=== PATIENT | male | born 1975 | race Caucasian/White ===

== ENCOUNTER 2018-10-18 10:11 | Day surgery (SDC) | payer BC ==
--- NOTE | 2018-10-18 11:30 | PCM.PREANE ---
Preanesthetic Assessment - Anesthesia/Transfusion/Family Hx Anesthesia History: Prior Anesthesia Without Reaction Family History of Anesthesia Reaction: No Transfusion History: No Prior Transfusion(s) - Review of Systems General: No Symptoms Pulmonary: No Symptoms Cardiovascular: No Symptoms Gastrointestinal: No Symptoms Neurological: No Symptoms Other: Reports: None - Physical Assessment NPO Status Date: 10/17/18 Height: 5 ft 10 in Weight: 124.738 kg ASA Class: 3 Mental Status: Alert & Oriented x3 Airway Class: Mallampati = 2 Dentition: Reports: Normal Dentition ROM/Head Extension: Full Lungs: Clear to Auscultation, Normal Respiratory Effort Cardiovascular: Regular Rate, Regular Rhythm - Allergies Allergies/Adverse Reactions: Allergies Allergy/AdvReac Type Severity Reaction Status Date / Time No Known Allergies Allergy Verified 10/12/18 09:15 - Blood Blood Available: No - Anesthesia Plan Pre-Op Medication Ordered: None - Acknowledgements Anesthesia Type Planned: General Anesthesia Pt an Appropriate Candidate for the Planned Anesthesia: Yes Alternatives and Risks of Anesthesia Discussed w Pt/Guardian: Yes Pt/Guardian Understands and Agrees with Anesthesia Plan: Yes Additional Comments: PMH: smoker, htn, asthma, (denies valium use), MO, prob EMANI PLAN: GA-LMA, emani instructions discussed and given. PreAnesthesia Questionnaire HEENT History: Reports: Other (See Below) Other HEENT History: nasal polyps Cardiovascular History: Reports: Hypertension Respiratory History: Reports: Asthma Gastrointestinal History: Reports: None Genitourinary History: Reports: None Musculoskeletal History: Reports: Fracture Other Musculoskeletal History: roc ankle fx Neurological History: Reports: None Psychiatric History: Reports: None Endocrine/Metabolic History: Reports: Obesity/BMI 30+ Hematologic History: Reports: None Immunologic History: Reports: None Oncologic (Cancer) History: Reports: None Dermatologic History: Reports: None - Past Surgical History Head Surgeries/Procedures: Reports: None HEENT Surgical History: Reports: Naso-Sinus Surgery GI Surgical History: Reports: None Male Surgical History: Reports: None Neurological Surgical History: Reports: None Musculoskeletal Surgical History: Reports: Arthroscopic Knee, Other (See Below) Other Musculoskeletal Surgeries/Procedures:: surgical repair of left ankle fx and later had hardware removal, roc knee arthroscopies Dermatological Surgical History: Reports: None - SUBSTANCE USE Smoking Status *Q: Current Every Day Smoker Tobacco Use Within Last Twelve Months: Cigarettes, Other (See Below) Recreational Drug Use History: No - HOME MEDS Home Medications: Home Meds Albuterol Sulfate [Albuterol Sulfate HFA] 2 puff INH Q4H PRN 10/18/14 [History] Budesonide/Formoterol [Symbicort 160-4.5 Mcg Inhaler] 1 puff INH DAILY 10/18/14 [History] Fluticasone Propionate [Flonase Allergy Relief] 1 spray NASBOTH DAILY 10/12/18 [ History] Losartan/Hydrochlorothiazide [Losartan-HCTZ 100-12.5 MG] 1 tab PO DAILY [History] - CURRENT (IN HOUSE) MEDS Current Meds: Current Medications Discontinued Medications Acetaminophen (Ofirmev) Confirm Administered Dose 100 mls @ as directed IV .STK- MED ONE Stop: 10/18/18 07:51
[2018-10-18] MEDS ORDERED: Sodium Chloride 0.9% 10 ML Syringe FLUSH PRN (11:40)
[2018-10-18] MEDS ORDERED: Sodium Chloride 0.9% 10 ML SDV IV PRN (11:40)
[2018-10-18] MEDS ORDERED: Sodium Chloride 0.9% 2.5 ML Syringe FLUSH PRN (11:40)
[2018-10-18] MEDS ORDERED: ceFAZolin 2 GM in Premix Bag 1 BAG IV ONE (11:40)
[2018-10-18] MEDS ORDERED: Acetaminophen/HYDROcodone 325-5 MG Tab PO PRN (11:40)
[2018-10-18] MEDS ORDERED: Lactated Ringers 1,000 ML IV SCH ×2 (11:45)
[2018-10-18] MEDS ORDERED: fentaNYL 100 MCG/2 ML SDV ONE (11:50)
[2018-10-18] MEDS ORDERED: Midazolam 1 MG/ML 2 ML SDV ONE (11:50)
[2018-10-18] MEDS ORDERED: Propofol 200 MG/20 ML SDV ONE (11:51)
[2018-10-18] MEDS ORDERED: Lidocaine 1% 20 ML MDV ONE (12:22)
[2018-10-18] MEDS ORDERED: HYDROmorphone 2 MG/ML SDV IVPUSH PRN (12:28)
[2018-10-18] MEDS ORDERED: Ondansetron 4 MG/2 ML SDV IVPUSH PRN (12:28)
[2018-10-18] MEDS ORDERED: ceFAZolin 1 GM Vial ONE (12:59)
[2018-10-18] MEDS ORDERED: Ondansetron 4 MG/2 ML SDV ONE (13:13)
--- NOTE | 2018-10-18 13:38 | PCM.OPNOTE ---
- General Post-Op/Procedure Note Date of Surgery/Procedure: 10/18/18 Operative Procedure(s): R knee arthroscopy with limited synovectomy Post-Op Diagnosis: R knee synovitis, crystalline deposition disease Anesthesia Technique: General LMA Primary Surgeon: Roro Platt Regulatory Affairs Portfolio Leader: Shanita Escobedo in mLs: 4 Condition: Good Free Text/Narrative:: tt= see nursing record #[id number]
--- NOTE | 2018-10-18 13:55 | PCM.POSTAN ---
POST ANESTHESIA ASSESSMENT - MENTAL STATUS Mental Status: Alert, Oriented - RESPIRATORY Respiratory Status: Respiratory Rate WNL, Airway Patent, O2 Saturation Stable - CARDIOVASCULAR CV Status: Pulse Rate WNL, Blood Pressure Stable - GASTROINTESTINAL GI Status: No Symptoms - PAIN Pain Score: 0 - POST OP HYDRATION Hydration Status: Adequate & Stable - OBSERVATIONS Free Text/Narrative:: The patient tolerated the procedure well. there were no apparent anesthetic complications at this time. Discharge home per criteria.
[2018-10-18] MEDS ORDERED: oxyCODONE 5 MG Tab PO ONE (14:09)
--- NOTE | 2018-10-18 14:32 | PCM48HPAN ---
Post Anesthesia Note - EVALUATION WITHIN 48HRS OF ANESTHETIC Vital Signs in Normal Range: Yes Patient Participated in Evaluation: Yes Respiratory Function Stable: Yes Airway Patent: Yes Cardiovascular Function Stable: Yes Hydration Status Stable: Yes Pain Control Satisfactory: Yes Nausea and Vomiting Control Satisfactory: Yes Mental Status Recovered: Yes Resp Rate: 9
--- NOTE | 2018-10-18 15:07 | OR ---
SURGEON: Roro Platt MD DATE OF PROCEDURE: 10/18/2018 PREOPERATIVE DIAGNOSIS: Right knee pain. POSTOPERATIVE DIAGNOSES: 1. Right knee synovitis. 2. Right knee crystalline deposition disease. PROCEDURES: Right knee arthroscopy with limited synovectomy. EVALUATION ANALYST: Shanita Escobedo PA-C ANESTHESIA: General. ESTIMATED BLOOD LOSS: 5 mL. TOURNIQUET TIME: See nursing record. COMPLICATIONS: None. DVT PROPHYLAXIS: Not indicated. IMPLANTS USED: None. BRIEF HISTORY: Dave is a 43-year-old male who has had complaint of progressive right knee pain. He cannot recall a specific injury. He did have a brief response to the cortisone injection; however, his pain has since recurred. Due to his lack of response to conservative treatment, I did recommend surgical intervention. The risks and goals of procedure were discussed with the patient and were documented preoperatively. He agreed to proceed. DESCRIPTION OF PROCEDURE: The patient was properly identified and brought to the operating room. He was transferred from the OR cart and placed on the operating table in supine position. General anesthesia was administered. After adequate anesthesia was obtained, a well-padded tourniquet was applied to the right lower extremity. The right lower extremity was then prepped in standard fashion using ChloraPrep solution. It was then sterilely draped. A time-out was performed to ensure correct site and procedure. Preoperative antibiotics were given. The surgical site had been marked preoperatively. An Esmarch was used to exsanguinate the right lower extremity and the tourniquet was inflated to 250 mmHg. A lateral portal arthrotomy was established. Blunt trocar and cannula were introduced into the suprapatellar pouch. Camera, inflow, and outflow were assembled. No significant synovitis was noted within the suprapatellar pouch. The patellofemoral joint was visualized. Minor degenerative changes consistent with grade 2 chondromalacia were noted. The patella appeared to track centrally. There was some impingement of the fat pad along the patellofemoral joint. I then extended down the lateral and medial gutters. No loose bodies were identified. I then entered the medial compartment. A medial portal arthrotomy was established. A blunt probe was inserted. The meniscus was extensively probed. No instability or tearing was noted. Crystals were noted to be deposited within the meniscus as well as the articular cartilage. Diffuse grade 2 chondromalacia was noted. I then entered the notch. Both the ACL and PCL were visualized and probed and found to be intact. He did have some hemorrhagic synovitis present along the superior aspect of the notch as well as anteriorly. This was resected with a shaver. I then entered the lateral compartment. Again, noted was the crystalline deposition disease. The meniscus was extensively probed and found to be stable. No significant degenerative changes were noted. I returned to the patellofemoral joint. A portion of the fat pad was resected and no further impingement was noted. No loose cartilage flaps were noted within the patellofemoral joint. Instruments were then removed from the knee. The portal sites were closed with 3-0 nylon. 1% Lidocaine was injected along the portal tracts. Xeroform gauze was placed over the wound and a bulky dressing was applied. The tourniquet was then deflated. He was awakened from his anesthetic and transferred back to the operating room cart. He was brought to recovery room in stable condition. All needle and sponge counts were correct. SHANTA / BRONSON /[id number]
[2018-10-18 16:01] VITALS: BP 115/79
== END 2018-10-18 15:00 | disposition home or self-care (01) ==
LOC: MW.SDS 10:11
PROVIDERS: ATTEND Orthopaedic Surgery
DX: M65.861 Other synovitis and tenosynovitis, right lower leg (principal); I10 Essential (primary) hypertension; J45.909 Unspecified asthma, uncomplicated; F17.210 Nicotine dependence, cigarettes, uncomplicated; Z79.51 Long term (current) use of inhaled steroids; Z79.899 Other long term (current) drug therapy
CPT/HCPCS: 29875; A9270; J0131; J0690; J2001; J2250; J2405; J2704; J3010; J7120

== ENCOUNTER 2019-08-11 23:10 | Emergency (ER) | payer BC ==
[2019-08-11] MEDS ORDERED: Albuterol/Ipratropium 3.0-0.5 MG/3 ML Neb Soln NEB ONE (23:18)
[2019-08-11] MEDS ORDERED: Albuterol/Ipratropium 3.0-0.5 MG/3 ML Neb Soln ONE (23:20)
[2019-08-12] MEDS ORDERED: Dexamethasone 4 MG Tab PO ONE (00:20)
[2019-08-12 01:21] LABS: BLOOD UREA NITROGEN,BUN 13 mg/dL (7.0-18.0); CARBON DIOXIDE,CO2 26.7 mmol/L (21.0-32.0); CHLORIDE,CL 101 mmol/L (98-107); GLUCOSE RANDOM 119 mg/dL (74-106); POTASSIUM,K 3.9 mmol/L (3.5-5.1); SODIUM,NA 137 mmol/L (136-148)
[2019-08-12] MEDS ORDERED: Iopamidol 755 Mg/ML 100 ML Bottle IVPUSH STA (01:46)
--- NOTE | 2019-08-12 02:21 | CT ---
Indication: Speech and swallowing difficulty, pain Technique: Contrast enhanced axial CT imaging through the neck. 100 mL Isovue 370 contrast agent was administered intravenously. Sagittal and coronal reconstructions are provided. Comparison: None Findings: There is scattered paranasal sinus mucosal thickening, most pronounced in the left maxillary sinus which is near completely opacified. There is widening of the maxillary ostia bilaterally, suggesting prior bilateral osteotomies. There is an air-fluid level in the right sphenoid sinus. There is no osseous erosion. The orbital contents are normal. The mastoid air cells are aerated There is no suspicious neck mass or lymphadenopathy. The parotid and submandibular glands are unremarkable. The pharynx demonstrates normal contour. The parapharyngeal fat is preserved. The oral cavity, tongue, and floor of mouth are unremarkable. No abnormality seen with the supervisor photoengraving spaces. The thyroid gland enhances homogeneously. No significant abnormality is demonstrated within the visualized intracranial compartment. The visualized aortic arch and neck vessels are unremarkable. Impression: 1. No significant abnormality of the visualized aerodigestive tract. No suspicious neck mass or lymphadenopathy. 2. Maxillary sinus mucosal disease, worst in the left maxillary sinus with air-fluid level in the right sphenoid sinus. Correlate for acute sinusitis. 3. Suggestion of prior bilateral maxillary osteotomies. Correlate with surgical history. Please note that all CT scans at this facility use dose modulation, iterative reconstruction, and/or weight-based dosing when appropriate to reduce radiation dose to as low as reasonably achievable. Dictated by Stephen Roberts MD @ Aug 12 2019 2:02AM Signed by Dr. Stephen Roberts @ Aug 12 2019 2:20AM
[2019-08-12] MEDS ORDERED: Ampicillin/Sulbactam Na 3 GM in Sodium Chloride 0.9% 100 ML IV ONE ×2 (02:29→03:30)
--- NOTE | 2019-08-12 02:49 | CR ---
INDICATION: Shortness of breath COMPARISON: None TECHNIQUE: Frontal and lateral views of the chest FINDINGS: The lungs are clear. There is no pleural effusion or pneumothorax. The cardiomediastinal silhouette is normal. The osseous structures are unremarkable. IMPRESSION: No acute intrathoracic process. Dictated by Stephen Roberts MD @ Aug 12 2019 2:47AM Signed by Dr. Stephen Roberts @ Aug 12 2019 2:49AM
[2019-08-12] MEDS ORDERED: Sodium Chloride 0.9% 1,000 ML IV ONE (02:57)
--- NOTE | 2019-08-12 04:04 | EDM.PDOC ---
[facility] GENERAL MEDICAL PROBLEM - General Chief Complaint: Allergic Reaction Stated Complaint: ALLERGIC REACTION,ASTHMA Time Seen by Provider: 08/11/19 23:41 - History of Present Illness INITIAL COMMENTS - FREE TEXT/NARRATIVE: HPI 44 y/o male presents with sensation of facial cutaneous swelling, sinus pressure , hoarse voice and a concern for swelling in his neck. No fevers or chills. Notes recent rash, diphenhydramine responsive, this occurred approximately one week ago. Unclear what triggered his rash. M/S/F/SocHx notable for: asthma; remainder reviewed with patient and in chart. ROS: Negative constitutional, eye, cardiovascular, pulmonary, GI, , MSK, skin , neurologic, psychiatric, endocrine unless noted in the HPI. Exam HR 123, RR 20, BP 150/93, T 36.7C, SaO2 91% on room air. Gen: Pleasant, non-toxic appearing, resting comfortably. HEENT: NC, AT, PEERL, EOMI. Voice hoarse. Oropharynx visually normal, left maxillary sinus tenderness to palpation. Neck supple, full JUAN MANUEL him, no lymphadenopathy. Resp: diffuse fine extra wheezing throughout all lung truong, otherwise clear to auscultation bilaterally. Card: Regular rate and rhythm with no murmurs, rubs, or gallops, extremities warm and well perfused. GI: Non-tender to palpation throughout all quadrants, no focal tenderness at McBurney's point, negative Gilliam's sign, non-distended, no rebound or guarding. : No suprapubic tenderness to palpation. MSK: No visible deformities, strength and tone without visually appreciable deficit. Skin: Normal color with no visible lesions. Neuro: alert and oriented 3, no facial asymmetry, vision and hearing WNL. Psych: Mood and affect appropriate. Labs / Imaging: WBC 19.05, HB 14.8, sodium 137, potassium 3.9 CT neck: no significant abnormality of the visualized aerodigestive tract. No suspicious neck mass or lymphadenopathy. Maxillary sinus mucosal disease, worsening left maxillary sinus with air-fluid level of the right sphenoid sinus. Correlate for acute sinusitis. Suggestion of prior bilateral maxillary osteotomies. CXR: no acute intrathoracic process. MDM Previous chart, nursing note, labs, imaging, and vitals reviewed. A: 44 y/o male presents with sensation of facial cutaneous swelling, sinus pressure, hoarse voice and a concern for swelling in his neck. Evaluation: patient with significant sinus disease, no evidence of epiglottitis , RPA, ASSET PROTECTION SPECIALIST, or further abnormalities on imaging or exam. No clinical features consistent with meningitis. Chest x-ray obtained due to the wheezing and cough, this is without evidence of acute intrabdominal processes. Patient had swelling of the upper lip while in the emergency department that visually appears to be consistent with angioedema, low suspicion for allergic reaction. While the patients medication history lists losartan, the patient has not taken this for at least a year. Patient denies recent NSAID use, trauma, or other identifiable changes in his daily routine. Extensive discussion was had with the patient with the recommendation for admission for monitoring of his swelling, tachycardia, leukocytosis, and concern for sepsis pathophysiology as well as facial swelling of unclear etiology. The patient declined admission on multiple opportunities, the patient had explained to him the risks and benefits including the possibility of worsening disease and . The patient made an informed decision and was discharged home on antibiotics. Prior to discharge the patient was given 1 L NS in addition to a first dose of antibiotics (Unasyn) . Patient was discharged AMA with the prescription for Augmentin and instructed to follow-up with his PCP tomorrow. Impression: facial swelling, sinusitis. throat Pain Score (Numeric/FACES): 6 - Related Data Allergies Allergy/AdvReac Type Severity Reaction Status Date / Time No Known Allergies Allergy Verified 10/12/18 09:15 Home Meds: Home Meds Albuterol Sulfate [Albuterol Sulfate HFA] 2 puff INH Q4H PRN 10/18/14 [History] Budesonide/Formoterol [Symbicort 160-4.5 MCG] 1 puff INH DAILY 10/18/14 [History ] Fluticasone Propionate [Flonase Allergy Relief] 1 spray NASBOTH DAILY 10/12/18 [ History] Losartan/Hydrochlorothiazide [Losartan-HCTZ 100-12.5 MG] 1 tab PO DAILY [History] Acetaminophen/HYDROcodone [Whitman 325-5 MG] 1 - 2 tab PO Q4H PRN #20 tablet 10/18 [Rx] Amoxicillin/Clavulanate K [Augmentin 875-125 MG] 1 tab PO BID #20 tablet [Rx] Past Medical History HEENT History: Reports: Other (See Below) Other HEENT History: nasal polyps Cardiovascular History: Reports: Hypertension Respiratory History: Reports: Asthma Gastrointestinal History: Reports: None Genitourinary History: Reports: None Musculoskeletal History: Reports: Fracture Other Musculoskeletal History: roc ankle fx Neurological History: Reports: None Psychiatric History: Reports: None Endocrine/Metabolic History: Reports: Obesity/BMI 30+ Hematologic History: Reports: None Immunologic History: Reports: None Oncologic (Cancer) History: Reports: None Dermatologic History: Reports: None - Past Surgical History Head Surgeries/Procedures: Reports: None HEENT Surgical History: Reports: Naso-Sinus Surgery GI Surgical History: Reports: None Male Surgical History: Reports: None Neurological Surgical History: Reports: None Musculoskeletal Surgical History: Reports: Arthroscopic Knee, Other (See Below) Other Musculoskeletal Surgeries/Procedures:: surgical repair of left ankle fx and later had hardware removal, roc knee arthroscopies Dermatological Surgical History: Reports: None Social & Family History - Family History Family Medical History: Noncontributory - Tobacco Use Smoking Status *Q: Light Tobacco Smoker Years of Tobacco use: 15 Packs/Tins Daily: 0.1 - Recreational Drug Use Recreational Drug Use: No ED ROS ALLERGIC REACTION - Review of Systems Review Of Systems: See Below ED EXAM GENERAL NO PERIP PULSE - Physical Exam Exam: See Below Course - Vital Signs Last Recorded V/S: Last Vital Signs Temp 36.7 C 08/11/19 23:22 Pulse 123 H 08/11/19 23:22 Resp 20 08/11/19 23:22 BP 150/93 H 08/11/19 23:22 Pulse Ox 91 L 08/11/19 23:22 - Orders/Labs/Meds Orders: Active Orders 24 hr Category Date Time Status RT Aerosol Therapy [RC] ASDIRECTED Care 08/11/19 23:18 Active Labs: Laboratory Tests 08/12/19 08/12/19 08/12/19 Range/Units 01:05 01:05 01:05 WBC 19.05 H (4.0-11.0) K/uL RBC 5.09 (4.50-5.90) M/uL Hgb 14.8 (13.0-17.0) g/dL Hct 42.7 (38.0-50.0) % MCV 83.9 (80.0-98.0) fL MCH 29.1 (27.0-32.0) pg MCHC 34.7 (31.0-37.0) g/dL RDW Std Deviation 41.9 (28.0-62.0) fl RDW Coeff of Diana 14 (11.0-15.0) % Plt Count 320 (150-400) K/uL MPV 10.70 (7.40-12.00) fL Add Manual Diff YES Neutrophils % (Manual) 75 (48.0-80.0) % Band Neutrophils % 2 % Lymphocytes % (Manual) 17 (16.0-40.0) % Monocytes % (Manual) 6 (0.0-15.0) % Absolute Seg Neuts 14.3 H (1.4-5.7) Band Neutrophils # 0.4 Lymphocytes # (Manual) 3.2 H (0.6-2.4) Monocytes # (Manual) 1.1 H (0.0-0.8) Lactate 0.9 (0.20-2.00) mmol/L Sodium 137 (136-148) mmol/L Potassium 3.9 (3.5-5.1) mmol/L Chloride 101 (98-107) mmol/L Carbon Dioxide 26.7 (21.0-32.0) mmol/L BUN 13 (7.0-18.0) mg/dL Creatinine 0.9 (0.8-1.3) mg/dL Est Cr Clr Drug Dosing 108.15 mL/min Estimated GFR (MDRD) > 60.0 ml/min Glucose 119 H (74-106) mg/dL Calcium 8.9 (8.5-10.1) mg/dL Meds: Medications Discontinued Medications Generic Name Dose Route Start Last Admin Trade Name Ana PRN Reason Stop Dose Admin Albuterol/Ipratropium 3 ml 08/11/19 23:18 08/11/19 23:24 Duoneb 3.0-0.5 Mg/3 Ml NEB 08/11/19 23:19 3 ml ONETIME ONE Administration Albuterol/Ipratropium Confirm 08/11/19 23:20 08/12/19 00:52 Duoneb 3.0-0.5 Mg/3 Ml Administered 08/11/19 23:21 Not Given Dose 3 ml .ROUTE .STK-MED ONE Dexamethasone 12 mg 08/12/19 00:20 08/12/19 00:54 Dexamethasone PO 08/12/19 00:21 12 mg ONETIME ONE Administration Ampicillin Sodium/Sulbactam 100 mls @ 200 mls/hr 08/12/19 02:29 08/12/19 03: 26 Sodium 3 gm/ Sodium Chloride IV 08/12/19 02:58 200 mls/hr ONETIME ONE Administration Sodium Chloride 1,000 mls @ 1,000 mls/hr 08/12/19 02:57 08/12/19 03:24 Normal Saline IV 08/12/19 03:56 1,000 mls/hr .Bolus ONE Administration Ampicillin Sodium/Sulbactam 100 mls @ 200 mls/hr 08/12/19 03:30 08/12/19 03: 55 Sodium 3 gm/ Sodium Chloride IV 08/12/19 03:59 Not Given ONETIME ONE Iopamidol 100 ml 08/12/19 01:46 08/12/19 01:55 Isovue-370 (76%) IVPUSH 08/12/19 01:47 100 ml ONETIME STA Administration Departure - Departure Time of Disposition: 04:03 Disposition: Home, Self-Care 01 Clinical Impression: Facial swelling, Sinusitis - Discharge Information Prescriptions: Amoxicillin/Clavulanate K [Augmentin 875-125 MG] 1 tab PO BID #20 tablet Referrals: PCP,Not In Area [Primary Care Provider] - Additional Instructions: You were in seen in the [facility] for evaluation of facial swelling of sinus pain. At the time of your evaluation because your facial swelling is unclear. You were also believed to have a sinus infection and have been prescribed Augmentin. Admission to the hospital strongly recommended. You are being discharged against medical advice as there is a concern that your swelling could worsen leading to blockage of her airway with or permanent injury resulting. Additionally, your infection appears to be serious enough to warrant inpatient care. Treatment on an outpatient basis is considered unnecessarily risky, this infection may progress and cause serious injury, permanent injury, or . Please read and follow all of the instructions below. You are being discharged against medical advice. You are welcome to return to this or any other emergency department at any time for further care. Prior to being discharged, you expressed an understanding that you are risking permanent disability or from an undiagnosed or untreated emergency medical condition. You also expressed a willingness to accept this risk and assume responsibility for the results of this choice. To reduce your risk, please do the following: Return immediately for any worsening of condition or any other new concerns. Read all the instructions we provided today. Continue all your medications as prescribed. Follow up with your primary care physician immediately. You are being discharged against medical advice. You are welcome to return to this or any other emergency department at any time for further care. Please follow up with your primary care physician as needed. When calling for follow-up care, please make the office aware that this follow-up is from your recent emergency room visit. If for any reason you are refused follow-up, please contact the [facility] at and asked to speak to the emergency department charge nurse. Amoxicillin/Clavulanic Acid (Brand Name: Augmentin) Please take this medication as prescribed. Please take the medication for the full duration of the precription. If you feel you are experiencing a side effect, please call your physician or the emergency department. This is a penicillin type medicine used to treat a wide variety of bacterial infections. Amoxicillin/Clavulanic Acid Side Effects: Diarrhea, nausea, or vomiting may occur. If any of these effects persist or worsen, tell the doctor or pharmacist promptly. Taking this medication with food will help to reduce stomach upset. Tell the doctor right away if any of these rare but serious side effects occur: dark urine, persistent nausea/vomiting, severe stomach/abdominal pain, yellowing eyes/skin, easy bruising/bleeding, new signs of infection (such as fever, persistent sore throat), unusual tiredness. This medication may rarely cause a severe intestinal condition (Clostridium difficile-associated diarrhea) due to a type of resistant bacteria. This condition may occur during treatment or weeks to months after treatment has stopped. Do not use anti-diarrhea products or narcotic pain medications if you have any of the following symptoms because these products may make them worse. Tell the doctor right away if you develop: persistent diarrhea, abdominal or stomach pain/cramping, blood/mucus in your stool. Use of this medication for prolonged or repeated periods may result in oral thrush or a new yeast infection. Contact the doctor if you notice white patches in your mouth, a change in vaginal discharge or other new symptoms. A very serious allergic reaction to this drug is rare. However, get medical help right away if you notice any symptoms of a serious allergic reaction, including: rash, itching/swelling (especially of the face/tongue/throat), severe dizziness, trouble breathing. Amoxicillin can commonly cause a mild rash that is usually not serious. However, you may not be able to tell it apart from a rare rash that could be a sign of a severe allergic reaction. Therefore, get medical help right away if you develop any rash. Amoxicillin/Clavulanic Acid Precautions: Before taking this product, tell your doctor or pharmacist if you are allergic to amoxicillin or clavulanic acid; or to penicillin or cephalosporin antibiotics; or if you have any other allergies. This product may contain inactive ingredients, which can cause allergic reactions or other problems. Talk to your pharmacist for more details. Before using this medication, tell the doctor or pharmacist your medical history, especially of: liver disease (including liver problems caused by previous use of amoxicillin/clavulanic acid), kidney disease, a certain type of viral infection (infectious mononucleosis). This medication may contain aspartame. If you have phenylketonuria (PKU) or any other condition that requires you to limit/avoid aspartame (or phenylalanine ) in your diet, ask your doctor or pharmacist about using this medication safely. Before having surgery, tell your doctor or dentist about all the products you use (including prescription drugs, nonprescription drugs, and herbal products). This product may cause live bacterial vaccines (such as typhoid vaccine) not to work as well. Therefore, do not have any immunizations/vaccinations while using this medication without the consent of your doctor. During , this medication should be used only when clearly needed. Discuss the risks and benefits with your doctor. This medication passes into breast milk. Consult your doctor before breast- feeding. Amoxicillin/Clavulanic Acid Drug Interactions: Drug interactions may change how your medications work or increase your risk for serious side effects. This document does not contain all possible drug interactions. Keep a list of all the products you use (including prescription/ nonprescription drugs and herbal products) and share it with your doctor and pharmacist. Do not start, stop, or change the dosage of any medicines without your doctor's approval. Products that may interact with this drug include: methotrexate. Although most antibiotics are unlikely to affect hormonal control such as pills, patch, or ring, a few antibiotics (such as rifampin, rifabutin) can decrease their effectiveness. This could result in . If you use hormonal control, ask your doctor or pharmacist for more details. This medication may interfere with certain laboratory tests (including certain urine glucose tests), possibly causing false test results. Make sure laboratory personnel and all your doctors know you use this drug. Your care today was limited to identifying and treating emergent medical problems only. Many people have subtle differences in their test results that require follow up with their outpatient physician(s) to correctly determine if this represents a normal variation or concerning abnormality with respect to your specific health. The care given to you today was limited to identifying and treating emergent medical problems - you need to request a copy of all of your medical records from today's visit and follow up with your outpatient physician(s) to review both today's visit and your overall health. If you have any new symptoms or if you are at all concerned about your health please return immediately to the emergency department. Prescriptions: If you are uninsured or have financial difficulties with filling your prescription(s), you may consider using a free pharmacy discount service such as [employer] ([employer]) or Wink ([employer]). These services allow you to search for a medication on your phone (or computer) and obtain a coupon that usually has a significant discount from the list hilton at a pharmacy. Your physician as well as [facility] does not have a financial relationship with either of these services. You may also wish to speak with your physician to determine if lower cost prescriptions are possible. Obtaining primary care: 1. provides pediatrics (children), family medicine (children, adults, and some obstetrical care), and internal medicine (adults). Further specialty care is also available. Same day appointments are available. They may be contacted at [phone] and are open Tuesday through Tuesday 8 AM to 5 PM. The [facility] are located at [facility], [address] [place] [address]. 2. [facility] offers family medicine, internal medicine, womens health, and further specialty care. [facility] may be contacted at [phone]. [facility] is located at [address] [place], [address]. 3. If you have health insurance, please also contact your insurer for a list of accepting providers under your policy, you may contact these providers for further health care. Occupational health: Work related injuries may consider following up with [facility], . Occupational health services are located at [address] [place] [address] and are open Tuesday through Tuesday from 7: 30 am to 5:00 pm. Obstetrical and Gynecological Care: [facility], , Tuesday through Tuesday 8 AM to 5 PM. [address] [place] [address]. Eyecare: If you have an eye injury you should follow up with your calculus professor or with [facility], at [phone] or [phone] , they are located at [address] [place] [address]. Dental Care Vince Lin DDS. [address] [place], [place]. Ph. [phone] DDS [place]. [address] [facility] [address], [place], [place]. Ph. Devonte Morgan DDS. [address] [place] [address]. Ph. [phone] Je Purvis DDS. [address] [facility] [address] [place], [place]. Ph. [phone] Jaret Ferris DDS PC. [address] [facility] [address] [place], [place]. Ph. [phone] Saida Jordan DDS. [address] [facility]. Ph. [phone] [facility]. [address] [place], [place]. Ph. [phone] [facility]. [address] [place] [address], [place], [place]. Ph. [phone] [facility] [address] [place] [phone]. Ph. [facility]. [address] [place] [address] [address] HOANG Rincon. Ph. [facility]. [address], HOANG Rincon. Ph. Sepsis Event Note - Evaluation Sepsis Screening Result: No Definite Risk - Focused Exam Vital Signs: Vital Signs Temp Pulse Resp BP Pulse Ox 08/11/19 23:22 36.7 C 123 H 20 150/93 H 91 L Date Exam was Performed: 08/12/19 Time Exam was Performed: 04:03 - My Orders Last 24 Hours: My Active Orders 08/11/19 23:18 RT Aerosol Therapy [RC] ASDIRECTED - Assessment/Plan Last 24 Hours: My Active Orders 08/11/19 23:18 RT Aerosol Therapy [RC] ASDIRECTED
[2019-08-12 04:25] VITALS: BP 137/73; PULSE 102
== END 2019-08-12 04:15 | disposition home or self-care (01) ==
LOC: MW.ED 23:10
DX: J32.9 Chronic sinusitis, unspecified (principal); I10 Essential (primary) hypertension; J45.909 Unspecified asthma, uncomplicated; E66.9 Obesity, unspecified; F17.210 Nicotine dependence, cigarettes, uncomplicated
CPT/HCPCS: 36415; 70491; 71046; 80048; 83605; 85025; 96365; 99284; J0295; J7030; J7050; J8540; Q9967; J7620-GY

== ENCOUNTER 2019-10-28 10:03 | Observation (INO) | payer BC, OTHER ==
[2019-10-28] MEDS ORDERED: Acetaminophen 500 MG Tab PO ONE (10:51)
[2019-10-28] MEDS ORDERED: predniSONE 20 MG Tab PO ONE (10:51)
[2019-10-28] MEDS ORDERED: Sodium Chloride 0.9% 1,000 ML IV ONE (10:52)
[2019-10-28] MEDS ORDERED: Albuterol 8 GM Inhaler INH ONE (10:53)
--- NOTE | 2019-10-28 11:44 | CR ---
Clinical INDICATION: Possible COVID. FINDINGS: Are the cardiomediastinal silhouette, lung parenchyma, pulmonary pressure pleural surfaces are all normal appearance. The bony thorax appears intact. IMPRESSION: Negative study. Dictated by Pravin Wang MD @ Oct 28 2019 11:41AM Signed by Dr. Pravin Wang @ Oct 28 2019 11:42AM
[2019-10-28] MEDS ORDERED: cefTRIAXone 1 GM in Premix Bag 1 BAG IV ONE (11:45)
[2019-10-28 11:51] LABS: BLOOD UREA NITROGEN,BUN 17 mg/dL (7.0-18.0); CHLORIDE,CL 102 mmol/L (98-107); GLUCOSE RANDOM 112 mg/dL (74-106); SODIUM,NA 137 mmol/L (136-148)
[2019-10-28] MEDS ORDERED: diphenhydrAMINE 50 MG Cap PO ONE (11:53)
--- NOTE | 2019-10-28 12:10 | EDM.PDOC ---
ED HPI GENERAL MEDICAL PROBLEM - General Chief Complaint: Fever Stated Complaint: FEVER/COUGH/HIVES Time Seen by Provider: 10/28/19 10:30 - History of Present Illness INITIAL COMMENTS - FREE TEXT/NARRATIVE: 44-year-old male history of asthma presenting to ER for cough fever weakness and hives. Cough and fever for like 2 days with some difficulty breathing which he attributes to his asthma. The hives started the night prior he has had similar hives before without a clear etiology. Patient has recent travel to [facility]. Reports body aches runny nose. Denies headache. No bleeding anywhere. No sore throat. Denies any dysuria. Denies any other associated symptoms. Does not recall anything that makes his symptoms better or worse. body aches Pain Score (Numeric/FACES): 2 - Related Data Allergies Allergy/AdvReac Type Severity Reaction Status Date / Time No Known Allergies Allergy Verified 10/28/19 14:43 Home Meds: Home Meds Albuterol Sulfate [Albuterol Sulfate HFA] 2 puff INH Q4H PRN 10/18/14 [History] Budesonide/Formoterol [Symbicort 160-4.5 MCG] 1 puff INH DAILY 10/18/14 [History ] Fluticasone Propionate [Flonase Allergy Relief] 1 spray NASBOTH DAILY 10/12/18 [ History] Non-Formulary Medication [NF Drug] 1 each PO ASDIRECTED 10/28/19 [History] Past Medical History HEENT History: Reports: Other (See Below) Other HEENT History: nasal polyps Cardiovascular History: Reports: Hypertension Respiratory History: Reports: Asthma Gastrointestinal History: Reports: None Genitourinary History: Reports: None Musculoskeletal History: Reports: Fracture Other Musculoskeletal History: roc ankle fx Neurological History: Reports: None Psychiatric History: Reports: None Endocrine/Metabolic History: Reports: Obesity/BMI 30+ Hematologic History: Reports: None Immunologic History: Reports: None Oncologic (Cancer) History: Reports: None Dermatologic History: Reports: None - Infectious Disease History Infectious Disease History: Reports: Chicken Pox - Past Surgical History Head Surgeries/Procedures: Reports: None HEENT Surgical History: Reports: Naso-Sinus Surgery GI Surgical History: Reports: None Male Surgical History: Reports: None Neurological Surgical History: Reports: None Musculoskeletal Surgical History: Reports: Arthroscopic Knee, Other (See Below) Other Musculoskeletal Surgeries/Procedures:: surgical repair of left ankle fx and later had hardware removal, roc knee arthroscopies Dermatological Surgical History: Reports: None Social & Family History - Family History Family Medical History: Noncontributory - Tobacco Use Smoking Status *Q: Current Every Day Smoker Years of Tobacco use: 20 Packs/Tins Daily: 0.5 - Caffeine Use Caffeine Use: Reports: Coffee - Recreational Drug Use Recreational Drug Use: No ED ROS GENERAL - Review of Systems Review Of Systems: See Below ED EXAM, GENERAL - Physical Exam Exam: See Below Exam Limited By: Altered Mental Status General Appearance: Alert, No Apparent Distress Ears: Normal External Exam Nose: Normal Inspection Throat/Mouth: Normal Inspection, Normal Lips, Normal Oropharynx, Normal Voice, No Airway Compromise, Other (no swelling noted ) Head: Atraumatic, Normocephalic Neck: Normal Inspection Respiratory/Chest: No Respiratory Distress, Lungs Clear, Normal Breath Sounds, No Accessory Muscle Use Cardiovascular: Normal Peripheral Pulses GI/Abdominal: Soft, Non-Tender Back Exam: Normal Inspection Extremities: Normal Inspection Neurological: Alert, Oriented Psychiatric: Normal Affect Lymphatic: No Adenopathy Course - Vital Signs Last Recorded V/S: Last Vital Signs Temp 97.5 F 10/28/19 19:54 Pulse 102 H 10/28/19 19:54 Resp 20 10/28/19 19:54 BP 185/76 H 10/28/19 19:54 Pulse Ox 97 10/28/19 19:54 - Orders/Labs/Meds Orders: Active Orders 24 hr Category Date Time Status RT Pre-Treatment Assessment [RC] Click to Edit Care 10/28/19 10:54 Active CORONAVIRUS (COVID-19) PCR [MREF] Stat Lab 10/28/19 10:20 Received CULTURE BLOOD [BC] Stat Lab 10/28/19 11:11 Results CULTURE BLOOD [BC] Stat Lab 10/28/19 11:11 Results Azithromycin [Zithromax] Med 10/28/19 11:45 Active 500 mg PO Q24H Blood Culture x2 Reflex Set [OM.PC] Stat Oth 10/28/19 10:51 Ordered Isolation [COMM] Routine Oth 10/28/19 10:54 Active Isolation [COMM] Routine Oth 10/28/19 11:07 Active Medication Orders Albuterol (Ventolin Hfa) 0 gm INH Q4H PRN PRN Reason: Wheezing Albuterol/Ipratropium (Duoneb 3.0-0.5 Mg/3 Ml) 3 ml NEB Q4HRRT PRN PRN Reason: Shortness of Breath Azithromycin (Zithromax) 500 mg PO Q24H [facility] Last Admin: 10/28/19 12:25 Dose: 500 mg Fluticasone Propionate (Flonase) 0 gm NASBOTH DAILY [facility] Sodium Chloride (Normal Saline) 1,000 mls @ 125 mls/hr IV ASDIRECTED [facility] Last Admin: 10/28/19 14:49 Dose: 125 mls/hr Ceftriaxone Sodium/Dextrose 1 (gm/ Premix) 50 mls @ 100 mls/hr IV Q24H [facility] Labetalol HCl (Normodyne) 10 mg IVPUSH Q4H PRN; Protocol PRN Reason: Hypertension Methylprednisolone Sodium Succinate (Solu-Medrol) 40 mg IVPUSH DAILY [facility] Last Admin: 10/28/19 18:10 Dose: 40 mg Budesonide/Formoterol 160-4.5 Mcg/Puff 6 Gm Inhaler 1 each INH DAILY [facility] Last Admin: 10/28/19 18:10 Dose: 1 each Labs: Laboratory Tests 10/28/19 10/28/19 10/28/19 Range/Units 11:11 11:11 11:11 WBC 23.15 H (4.0-11.0) K/uL RBC 5.54 (4.50-5.90) M/uL Hgb 16.1 (13.0-17.0) g/dL Hct 48.1 (38.0-50.0) % MCV 86.8 (80.0-98.0) fL MCH 29.1 (27.0-32.0) pg MCHC 33.5 (31.0-37.0) g/dL RDW Std Deviation 44.0 (28.0-62.0) fl RDW Coeff of Diana 14 (11.0-15.0) % Plt Count 269 (150-400) K/uL MPV 10.10 (7.40-12.00) fL Neut % (Auto) 80.6 H (48.0-80.0) % Lymph % (Auto) 11.7 L (16.0-40.0) % [place] % (Auto) 6.9 (0.0-15.0) % Eos % (Auto) 0.6 (0.0-7.0) % Baso % (Auto) 0.2 (0.0-1.5) % Neut # (Auto) 18.7 H (1.4-5.7) K/uL Lymph # (Auto) 2.7 H (0.6-2.4) K/uL [place] # (Auto) 1.6 H (0.0-0.8) K/uL Eos # (Auto) 0.1 (0.0-0.7) K/uL Baso # (Auto) 0.0 (0.0-0.1) K/uL Nucleated RBC % 0.0 /100WBC Nucleated RBCs # 0 K/uL Lactate 1.1 (0.20-2.00) mmol/L Sodium 137 (136-148) mmol/L Potassium 4.0 (3.5-5.1) mmol/L Chloride 102 (98-107) mmol/L Carbon Dioxide 23.0 (21.0-32.0) mmol/L BUN 17 (7.0-18.0) mg/dL Creatinine 1.0 (0.8-1.3) mg/dL Est Cr Clr Drug Dosing 97.33 mL/min Estimated GFR (MDRD) > 60.0 ml/min Glucose 112 H (74-106) mg/dL Calcium 9.4 (8.5-10.1) mg/dL Ferritin (26-388) ng/mL Total Bilirubin 0.8 (0.2-1.0) mg/dL AST 12 L (15-37) IU/L ALT 34 (14-63) IU/L Alkaline Phosphatase 72 (46-116) U/L Total Protein 7.6 (6.4-8.2) g/dL Albumin 3.6 (3.4-5.0) g/dL Globulin 4.0 (2.6-4.0) g/dL Albumin/Globulin Ratio 0.9 (0.9-1.6) 10/28/19 Range/Units 11:11 WBC (4.0-11.0) K/uL RBC (4.50-5.90) M/uL Hgb (13.0-17.0) g/dL Hct (38.0-50.0) % MCV (80.0-98.0) fL MCH (27.0-32.0) pg MCHC (31.0-37.0) g/dL RDW Std Deviation (28.0-62.0) fl RDW Coeff of Diana (11.0-15.0) % Plt Count (150-400) K/uL MPV (7.40-12.00) fL Neut % (Auto) (48.0-80.0) % Lymph % (Auto) (16.0-40.0) % [place] % (Auto) (0.0-15.0) % Eos % (Auto) (0.0-7.0) % Baso % (Auto) (0.0-1.5) % Neut # (Auto) (1.4-5.7) K/uL Lymph # (Auto) (0.6-2.4) K/uL [place] # (Auto) (0.0-0.8) K/uL Eos # (Auto) (0.0-0.7) K/uL Baso # (Auto) (0.0-0.1) K/uL Nucleated RBC % /100WBC Nucleated RBCs # K/uL Lactate (0.20-2.00) mmol/L Sodium (136-148) mmol/L Potassium (3.5-5.1) mmol/L Chloride (98-107) mmol/L Carbon Dioxide (21.0-32.0) mmol/L BUN (7.0-18.0) mg/dL Creatinine (0.8-1.3) mg/dL Est Cr Clr Drug Dosing mL/min Estimated GFR (MDRD) ml/min Glucose (74-106) mg/dL Calcium (8.5-10.1) mg/dL Ferritin 195 (26-388) ng/mL Total Bilirubin (0.2-1.0) mg/dL AST (15-37) IU/L ALT (14-63) IU/L Alkaline Phosphatase (46-116) U/L Total Protein (6.4-8.2) g/dL Albumin (3.4-5.0) g/dL Globulin (2.6-4.0) g/dL Albumin/Globulin Ratio (0.9-1.6) Meds: Medications Generic Name Dose Route Start Last Admin Trade Name Ana PRN Reason Stop Dose Admin Albuterol 0 gm 10/28/19 15:32 Ventolin Hfa INH Q4H PRN Wheezing Albuterol/Ipratropium 3 ml 10/28/19 17:19 Duoneb 3.0-0.5 Mg/3 Ml NEB Q4HRRT PRN Shortness of Breath Azithromycin 500 mg 10/28/19 11:45 10/28/19 12:25 Zithromax PO 500 mg Q24H [facility] Administration Fluticasone Propionate 0 gm 10/29/19 09:00 Flonase NASBOTH DAILY [facility] Sodium Chloride 1,000 mls @ 125 mls/hr 10/28/19 14:15 10/28/19 14:49 Normal Saline IV 125 mls/hr ASDIRECTED [facility] Administration Ceftriaxone Sodium/Dextrose 1 50 mls @ 100 mls/hr 10/29/19 09:00 gm/ Premix IV Q24H [facility] Labetalol HCl 10 mg 10/28/19 20:48 Normodyne IVPUSH Q4H PRN Hypertension Protocol Methylprednisolone Sodium Succinate 40 mg 10/28/19 17:39 10/28/19 18:10 Solu-Medrol IVPUSH 40 mg DAILY [facility] Administration Budesonide/ 1 each 10/28/19 15:45 10/28/19 18:10 Formoterol 160-4.5 INH 1 each Mcg/Puff 6 Gm DAILY [facility] Administration Inhaler Discontinued Medications Generic Name Dose Route Start Last Admin Trade Name Ana PRN Reason Stop Dose Admin Acetaminophen 1,000 mg 10/28/19 10:51 10/28/19 11:12 Tylenol Extra Strength PO 10/28/19 10:52 1,000 mg ONETIME ONE Administration Albuterol 0 gm 10/28/19 10:53 10/28/19 11:13 Ventolin Hfa INH 10/28/19 10:54 2 inhalation ONETIME ONE Administration Diphenhydramine HCl 50 mg 10/28/19 11:53 10/28/19 12:25 Benadryl PO 10/28/19 11:54 50 mg ONETIME ONE Administration Diphenhydramine HCl 25 mg 10/28/19 16:35 10/28/19 16:49 Benadryl IVPUSH 03/22/20 16:36 25 mg ONETIME ONE Administration Sodium Chloride 1,000 mls @ 999 mls/hr 10/28/19 10:52 10/28/19 11:12 Normal Saline IV 10/28/19 11:52 999 mls/hr .BOLUS ONE Administration Ceftriaxone Sodium/Dextrose 1 50 mls @ 100 mls/hr 10/28/19 11:45 10/28/19 12: 25 gm/ Premix IV 10/28/19 12:14 100 mls/hr ONETIME ONE Administration Prednisone 40 mg 10/28/19 10:51 10/28/19 11:12 Prednisone PO 10/28/19 10:52 40 mg ONETIME ONE Administration - Re-Assessments/Exams Free Text/Narrative Re-Assessment/Exam: 10/28/19 12:07 cough/fever- no pna on xray. mild hypoxia. will supplement 02 as needed. WBC of 20 with normal lactate. normal bloood pressure. will cover for community aquired pna. isolation ordered. covid to be ruled out. hives: unclear etiology, no petichiae anywhere. given prednisone (which would help for his asthma, which he described feeling). no signs of angioedema or severe allergic reaction. Departure - Departure Time of Disposition: 15:00 Disposition: Refer to Observation Clinical Impression: Fever, Leukocytosis - Discharge Information Sepsis Event Note - Evaluation Sepsis Screening Result: Possible Sepsis Risk - Focused Exam Vital Signs: Vital Signs Temp Temp Pulse Resp BP Pulse Ox 10/28/19 11:42 100.0 F 10/28/19 11:12 99.9 F 10/28/19 10:26 99.7 F 117 H 20 140/95 H 91 L Date Exam was Performed: 10/28/19 Time Exam was Performed: 21:27 - My Orders Last 24 Hours: My Active Orders 10/28/19 10:20 CORONAVIRUS (COVID-19) PCR [MREF] Stat 10/28/19 10:51 Blood Culture x2 Reflex Set [OM.PC] Stat 10/28/19 10:54 RT Pre-Treatment Assessment [RC] Click to Edit Isolation [COMM] Routine 10/28/19 11:07 Isolation [COMM] Routine 10/28/19 11:11 CULTURE BLOOD [BC] Stat CULTURE BLOOD [BC] Stat 10/28/19 11:45 Azithromycin [Zithromax] 500 mg PO Q24H - Assessment/Plan Last 24 Hours: My Active Orders 10/28/19 10:20 CORONAVIRUS (COVID-19) PCR [MREF] Stat 10/28/19 10:51 Blood Culture x2 Reflex Set [OM.PC] Stat 10/28/19 10:54 RT Pre-Treatment Assessment [RC] Click to Edit Isolation [COMM] Routine 10/28/19 11:07 Isolation [COMM] Routine 10/28/19 11:11 CULTURE BLOOD [BC] Stat CULTURE BLOOD [BC] Stat 10/28/19 11:45 Azithromycin [Zithromax] 500 mg PO Q24H
[2019-10-28] MEDS: Azithromycin 250 MG Tab PO SCH (12:25)
[2019-10-28] MEDS: Sodium Chloride 0.9% 1,000 ML IV SCH ×2 (14:49→23:00)
--- NOTE | 2019-10-28 15:29 | PCM.HP.2 ---
H&P History of Present Illness - General Date of Service: 10/28/19 Admit Problem/Dx: Admission Diagnosis/Problem Admission Diagnosis/Problem Fever - History of Present Illness Initial Comments - Free Text/Narative: 44-year-old male history of asthma presenting to ER for hives, cough, reported fever, weakness. Symptoms started 2 days ago, but his hives started last night without a clear etiology. Patient states that he has recently traveled to [facility]. Reports body aches,runny nose. Denies headache, sore throat. Denies any dysuria. Denies any other associated symptoms. Patient states that his asthma was well controlled till in mid 30s when he had a severe attack and was intubated, states that that attack led to a lot of his lung tissue damaged. CXR was unremarkbale, WBC count was high, HR as high, no fever, BP stable, lactate was normal. Patient was given oral steroids and started on IV antibiotics , Flu was negative, due to travel history patient is being tested for COVID-19 and admitted for further management. Onset of Symptoms: Reports: Gradual Duration of Symptoms: Reports: Day(s):, Constant Location: Reports: Chest Improves with: Reports: None Worsens with: Reports: None Context: Reports: Travel body aches Pain Score (Numeric/FACES): 2 - Related Data Allergies/Adverse Reactions: Allergies Allergy/AdvReac Type Severity Reaction Status Date / Time No Known Allergies Allergy Verified 10/28/19 14:43 Home Medications: Home Meds Albuterol Sulfate [Albuterol Sulfate HFA] 2 puff INH Q4H PRN 10/18/14 [History] Budesonide/Formoterol [Symbicort 160-4.5 MCG] 1 puff INH DAILY 10/18/14 [History ] Fluticasone Propionate [Flonase Allergy Relief] 1 spray NASBOTH DAILY 10/12/18 [ History] Non-Formulary Medication [NF Drug] 1 each PO ASDIRECTED 10/28/19 [History] Past Medical History HEENT History: Reports: Other (See Below) Other HEENT History: nasal polyps Cardiovascular History: Reports: Hypertension Respiratory History: Reports: Asthma Gastrointestinal History: Reports: None Genitourinary History: Reports: None Musculoskeletal History: Reports: Fracture Other Musculoskeletal History: roc ankle fx Neurological History: Reports: None Psychiatric History: Reports: None Endocrine/Metabolic History: Reports: Obesity/BMI 30+ Hematologic History: Reports: None Immunologic History: Reports: None Oncologic (Cancer) History: Reports: None Dermatologic History: Reports: None - Infectious Disease History Infectious Disease History: Reports: Chicken Pox - Past Surgical History Head Surgeries/Procedures: Reports: None HEENT Surgical History: Reports: Naso-Sinus Surgery GI Surgical History: Reports: None Male Surgical History: Reports: None Neurological Surgical History: Reports: None Musculoskeletal Surgical History: Reports: Arthroscopic Knee, Other (See Below) Other Musculoskeletal Surgeries/Procedures:: surgical repair of left ankle fx and later had hardware removal, roc knee arthroscopies Dermatological Surgical History: Reports: None Social & Family History - Family History Family Medical History: Noncontributory - Tobacco Use Smoking Status *Q: Current Every Day Smoker Years of Tobacco use: 20 Packs/Tins Daily: 0.5 - Caffeine Use Caffeine Use: Reports: Coffee - Recreational Drug Use Recreational Drug Use: No H&P Review of Systems - Review of Systems: Review Of Systems: See Below General: Reports: Fever, Malaise, Weakness, Fatigue, Decreased Appetite Pulmonary: Reports: Shortness of Breath, Cough. Denies: Wheezing Cardiovascular: Reports: Dyspnea on Exertion. Denies: Chest Pain, Palpitations , Syncope Gastrointestinal: Denies: Abdominal Pain, Anorexia, Black Stool, Melena, Nausea , Vomiting Genitourinary: Denies: Dysuria, Frequency, Burning Musculoskeletal: Reports: Back Pain. Denies: Neck Pain, Shoulder Pain, Arm Pain Skin: Denies: Cyanosis, Jaundice, Mottled Psychiatric: Denies: Confusion, Depression, Mood Lability, Hallucinations Neurological: Denies: Confusion, Dizziness, Headache Exam - Exam Exam: See Below - Vital Signs Vital Signs: Last Vital Signs Temp 36.8 C 10/28/19 14:40 Pulse 103 H 10/28/19 14:40 Resp 16 10/28/19 14:40 BP 182/88 H 10/28/19 14:40 Pulse Ox 94 L 10/28/19 14:40 Weight: 120.202 kg - Exam Quality Assessment: Supplemental Oxygen General: Alert, Oriented, Cooperative Lungs: Clear to Auscultation, Decreased Breath Sounds Cardiovascular: Regular Rate, Regular Rhythm GI/Abdominal Exam: Normal Bowel Sounds, Soft, Non-Tender Extremities: Normal Inspection, Normal Range of Motion Peripheral Pulses: 3+: Dorsalis Pedis (L), Dorsalis Pedis (R) Skin: Warm, Intact - Patient Data Lab Results Last 24 hrs: Laboratory Results - last 24 hr 10/28/19 10/28/19 10/28/19 Range/Units 11:11 11:11 11:11 WBC 23.15 H (4.0-11.0) K/uL RBC 5.54 (4.50-5.90) M/uL Hgb 16.1 (13.0-17.0) g/dL Hct 48.1 (38.0-50.0) % MCV 86.8 (80.0-98.0) fL MCH 29.1 (27.0-32.0) pg MCHC 33.5 (31.0-37.0) g/dL RDW Std Deviation 44.0 (28.0-62.0) fl RDW Coeff of Diana 14 (11.0-15.0) % Plt Count 269 (150-400) K/uL MPV 10.10 (7.40-12.00) fL Neut % (Auto) 80.6 H (48.0-80.0) % Lymph % (Auto) 11.7 L (16.0-40.0) % [place] % (Auto) 6.9 (0.0-15.0) % Eos % (Auto) 0.6 (0.0-7.0) % Baso % (Auto) 0.2 (0.0-1.5) % Neut # (Auto) 18.7 H (1.4-5.7) K/uL Lymph # (Auto) 2.7 H (0.6-2.4) K/uL [place] # (Auto) 1.6 H (0.0-0.8) K/uL Eos # (Auto) 0.1 (0.0-0.7) K/uL Baso # (Auto) 0.0 (0.0-0.1) K/uL Nucleated RBC % 0.0 /100WBC Nucleated RBCs # 0 K/uL Lactate 1.1 (0.20-2.00) mmol/L Sodium 137 (136-148) mmol/L Potassium 4.0 (3.5-5.1) mmol/L Chloride 102 (98-107) mmol/L Carbon Dioxide 23.0 (21.0-32.0) mmol/L BUN 17 (7.0-18.0) mg/dL Creatinine 1.0 (0.8-1.3) mg/dL Est Cr Clr Drug Dosing 97.33 mL/min Estimated GFR (MDRD) > 60.0 ml/min Glucose 112 H (74-106) mg/dL Calcium 9.4 (8.5-10.1) mg/dL Total Bilirubin 0.8 (0.2-1.0) mg/dL AST 12 L (15-37) IU/L ALT 34 (14-63) IU/L Alkaline Phosphatase 72 (46-116) U/L Total Protein 7.6 (6.4-8.2) g/dL Albumin 3.6 (3.4-5.0) g/dL Globulin 4.0 (2.6-4.0) g/dL Albumin/Globulin Ratio 0.9 (0.9-1.6) Result Diagrams: 10/28/19 11:11 10/28/19 11:11 Ken Results Last 24 hrs: Microbiology 10/28/19 11:11 Anaerobic Blood Culture - Final Blood - Venous 10/28/19 11:11 Anaerobic Blood Culture - Final Blood - Venous - Lab Draw 10/28/19 10:20 Influenza Type A Antigen Screen - Final Nasopharyngeal Swab NEGATIVE INFLUENZA A VIRUS AG REFERENCE RANGE: NEGATIVE Influenza Type B Antigen Screen - Final NEGATIVE INFLUENZA B VIRUS AG REFERENCE RANGE: NEGATIVE Sepsis Event Note - Evaluation Sepsis Screening Result: Sepsis Risk - Focused Exam Vital Signs: Vital Signs Temp Temp Pulse Resp BP Pulse Ox 10/28/19 14:40 36.8 C 103 H 16 182/88 H 94 L 10/28/19 14:10 89 18 96 10/28/19 13:20 80 18 96 10/28/19 12:30 37.8 C 104 H 20 125/68 96 10/28/19 11:42 37.8 C 10/28/19 11:12 37.7 C 10/28/19 10:26 37.6 C 117 H 20 140/95 H 91 L Date Exam was Performed: 10/28/19 Time Exam was Performed: 20:43 - Problem List (1) Asthma exacerbation SNOMED Code(s): 458480481 ICD Code: J45.901 - UNSPECIFIED ASTHMA WITH (ACUTE) EXACERBATION Status: Acute Current Visit: Yes (2) Leukocytosis SNOMED Code(s): 130903504, 823678191 ICD Code: D72.829 - ELEVATED WHITE BLOOD CELL COUNT, UNSPECIFIED Status: Acute Current Visit: Yes Problem List Initiated/Reviewed/Updated: Yes Orders Last 24hrs: Active Orders 24 hr Category Date Time Status Admission Status [Patient Status] [ADT] Stat ADT 10/28/19 13:14 Active RT Pre-Treatment Assessment [RC] Click to Edit Care 10/28/19 10:54 Active CORONAVIRUS (COVID-19) PCR [MREF] Stat Lab 10/28/19 10:20 Received CULTURE BLOOD [BC] Stat Lab 10/28/19 11:11 Results CULTURE BLOOD [BC] Stat Lab 10/28/19 11:11 Results Azithromycin [Zithromax] Med 10/28/19 11:45 Active 500 mg PO Q24H Sodium Chloride 0.9% [Normal Saline] 1,000 ml Med 10/28/19 14:15 Active IV ASDIRECTED Blood Culture x2 Reflex Set [OM.PC] Stat Oth 10/28/19 10:51 Ordered Isolation [COMM] Routine Oth 10/28/19 10:54 Active Isolation [COMM] Routine Oth 10/28/19 11:07 Active Medication Orders Azithromycin (Zithromax) 500 mg PO Q24H [facility] Last Admin: 10/28/19 12:25 Dose: 500 mg Sodium Chloride (Normal Saline) 1,000 mls @ 125 mls/hr IV ASDIRECTED [facility] Last Admin: 10/28/19 14:49 Dose: 125 mls/hr Assessment/Plan Comment:: 44 y/o M admitted for asthma exacerbation vs bronchitis with suspected covid_19 infection During my exam was comfortable, no distress, on RA Po2 of 94% start oxygen via NC will cont IV antibiotics as WBC count is quite high, for possible bronchitis Will start IV fluids for hydration Will hold off on steroids due to potential COVID-19 infection, Check ferritin, IL-6 Will resume patients home meds Hold off on DuoNebs for now, no wheezing, cont home albuterol as needed Maintain airborne precautions Benadryl for hives start Montelukast monitor and replete electrolytes
[2019-10-28] MEDS ORDERED: Albuterol 8 GM Inhaler INH PRN (15:32)
[2019-10-28] MEDS ORDERED: diphenhydrAMINE 50 MG/ML SDV IVPUSH ONE (16:35)
[2019-10-28] MEDS ORDERED: Albuterol/Ipratropium 3.0-0.5 MG/3 ML Neb Soln NEB PRN (17:19)
[2019-10-28] MEDS: methylPREDNISolone Sodium Succinate 40 MG/1 ML SDV IVPUSH SCH (18:10)
[2019-10-28] MEDS: Budesonide/Formoterol 160-4.5 MCG/Puff 6 GM Inhaler INH SCH (18:10)
[2019-10-28] MEDS ORDERED: Labetalol 100 MG/20 ML MDV IVPUSH PRN (20:48)
[2019-10-29 06:15] LABS: BLOOD UREA NITROGEN,BUN 16 mg/dL (7.0-18.0); CARBON DIOXIDE,CO2 25.5 mmol/L (21.0-32.0); CHLORIDE,CL 111 mmol/L (98-107); GLUCOSE RANDOM 189 mg/dL (74-106); POTASSIUM,K 4.7 mmol/L (3.5-5.1); SODIUM,NA 145 mmol/L (136-148)
[2019-10-29] MEDS: Sodium Chloride 0.9% 1,000 ML IV SCH (06:33)
[2019-10-29] MEDS ORDERED: cefTRIAXone 1 GM in Premix Bag 1 BAG IV SCH (09:00)
[2019-10-29] MEDS ORDERED: Fluticasone Propionate Nasal Spray 16 GM Bottle NASBOTH SCH (09:00)
[2019-10-29] MEDS: methylPREDNISolone Sodium Succinate 40 MG/1 ML SDV IVPUSH SCH (10:33)
[2019-10-29] MEDS: Budesonide/Formoterol 160-4.5 MCG/Puff 6 GM Inhaler INH SCH (10:34)
[2019-10-29] MEDS: Azithromycin 250 MG Tab PO SCH (10:48)
[2019-10-29 10:53] VITALS: BP 140/74; PULSE 86
--- NOTE | 2019-10-29 13:23 | PCM.DCSUM1 ---
<Tin Valdez M - Last Filed: 10/29/19 13:16> Discharge Summary - Hospital Course Free Text/Narrative:: 44-year-old male admitted for acute hypoxic respiratory failure secondary to asthma exacerbation vs bronchitis. There was also suspicion for COVID19 infection as patient recently returned from a trip to [facility] 1 week ago. He has a PMH of HTN. Patient was noted to have elevated WBC count of 23,000 on admission. CXR on admission was negative. Blood cultures are pending. COVID19 is currently pending. Influenza was negative. Patient was started on supplemental oxygen, IV ceftriaxone and azithromycin, IV solumedrol 40 mg qd and duonebs 14 prn. On morning of discharge day, patient reported feeling much better overnight and wanted to be discharged. It was recommended to patient to stay in the hospital for IV antibiotics and further monitoring as his WBC count remained elevated at 23, 000 and COVID19 test was still pending. Patient stated that he felt much better and wished to leave against medical advice. He was advised to self-quarantine himself on discharge for at least 14 days. He will be notified of COVID19 test results once available. He was discharged on a course of azithromycin. Advised to follow-up with his PCP. - Discharge Data Discharge Date: 10/29/19 Discharge Disposition: Against Medical Advice 07 Condition: Stable - Referral to Home Health Primary Care Physician: PCP None - Patient Instructions Diet: Usual Diet as Tolerated Activity: As Tolerated Notify Provider of: Fever, Increased Pain, Swelling and Redness, Drainage, Nausea and/or Vomiting - Discharge Plan *PRESCRIPTION DRUG MONITORING PROGRAM REVIEWED*: Not Applicable *COPY OF PRESCRIPTION DRUG MONITORING REPORT IN PATIENT AMENA: Not Applicable Prescriptions/Med Rec: Azithromycin 500 mg PO DAILY 3 Days #3 tablet Home Medications: Home Meds Albuterol Sulfate [Albuterol Sulfate HFA] 2 puff INH Q4H PRN 10/18/14 [History] Budesonide/Formoterol [Symbicort 160-4.5 MCG] 1 puff INH DAILY 10/18/14 [History ] Fluticasone Propionate [Flonase Allergy Relief] 1 spray NASBOTH DAILY 10/12/18 [ History] Non-Formulary Medication [NF Drug] 1 each PO ASDIRECTED 10/28/19 [History] Azithromycin 500 mg PO DAILY 3 Days #3 tablet 10/29/19 [Rx] Patient Handouts: Fever, Adult Referrals: [facility] [Outside] Tin Valdez MD [Resident] - 11/08/19 2:00 pm - Discharge Summary/Plan Comment DC Time >30 min.: No - Patient Data Vitals - Most Recent: Last Vital Signs Temp 97.7 F 10/29/19 08:00 Pulse 86 10/29/19 08:00 Resp 18 10/29/19 08:00 BP 140/74 10/29/19 08:00 Pulse Ox 97 10/29/19 08:00 Weight - Most Recent: 120.202 kg I&O - Last 24 hours: Intake & Output 10/28/19 10/29/19 10/29/19 22:59 06:59 14:59 Intake Total 240 2149 1498 Balance 240 2149 1498 Lab Results - Last 24 hrs: Laboratory Results - last 24 hr 10/28/19 10/29/19 10/29/19 Range/Units 11:11 05:45 05:45 WBC 23.14 H (4.0-11.0) K/uL RBC 5.03 (4.50-5.90) M/uL Hgb 14.4 (13.0-17.0) g/dL Hct 44.6 (38.0-50.0) % MCV 88.7 (80.0-98.0) fL MCH 28.6 (27.0-32.0) pg MCHC 32.3 (31.0-37.0) g/dL RDW Std Deviation 45.1 (28.0-62.0) fl RDW Coeff of Diana 14 (11.0-15.0) % Plt Count 263 (150-400) K/uL MPV 10.30 (7.40-12.00) fL Neut % (Auto) 89.0 H (48.0-80.0) % Lymph % (Auto) 6.3 L (16.0-40.0) % Gem % (Auto) 4.7 (0.0-15.0) % Eos % (Auto) 0.0 (0.0-7.0) % Baso % (Auto) 0.0 (0.0-1.5) % Neut # (Auto) 20.6 H (1.4-5.7) K/uL Lymph # (Auto) 1.5 (0.6-2.4) K/uL Gem # (Auto) 1.1 H (0.0-0.8) K/uL Eos # (Auto) 0.0 (0.0-0.7) K/uL Baso # (Auto) 0.0 (0.0-0.1) K/uL Nucleated RBC % 0.0 /100WBC Nucleated RBCs # 0 K/uL Sodium 145 (136-148) mmol/L Potassium 4.7 (3.5-5.1) mmol/L Chloride 111 H (98-107) mmol/L Carbon Dioxide 25.5 (21.0-32.0) mmol/L BUN 16 (7.0-18.0) mg/dL Creatinine 0.9 (0.8-1.3) mg/dL Est Cr Clr Drug Dosing 108.15 mL/min Estimated GFR (MDRD) > 60.0 ml/min Glucose 189 H (74-106) mg/dL Calcium 9.3 (8.5-10.1) mg/dL Phosphorus 3.0 (2.6-4.7) mg/dL Magnesium 2.1 (1.8-2.4) mg/dL Ferritin 195 (26-388) ng/mL [place] Results - Last 24 hrs: Microbiology 10/28/19 11:11 Aerobic Blood Culture - Preliminary Blood - Venous - Lab Draw NO GROWTH AFTER 1 DAY Anaerobic Blood Culture - Final 10/28/19 11:11 Aerobic Blood Culture - Preliminary Blood - Venous NO GROWTH AFTER 1 DAY Anaerobic Blood Culture - Final 10/28/19 10:20 Influenza Type A Antigen Screen - Final Nasopharyngeal Swab NEGATIVE INFLUENZA A VIRUS AG REFERENCE RANGE: NEGATIVE Influenza Type B Antigen Screen - Final NEGATIVE INFLUENZA B VIRUS AG REFERENCE RANGE: NEGATIVE Med Orders - Current: Current Medications Discontinued Medications Acetaminophen (Tylenol Extra Strength) 1,000 mg PO ONETIME ONE Stop: 10/28/19 10:52 Last Admin: 10/28/19 11:12 Dose: 1,000 mg Albuterol (Ventolin Hfa) 0 gm INH ONETIME ONE Stop: 10/28/19 10:54 Last Admin: 10/28/19 11:13 Dose: 2 inhalation Albuterol (Ventolin Hfa) 0 gm INH Q4H PRN PRN Reason: Wheezing Albuterol/Ipratropium (Duoneb 3.0-0.5 Mg/3 Ml) 3 ml NEB Q4HRRT PRN PRN Reason: Shortness of Breath Azithromycin (Zithromax) 500 mg PO Q24H [facility] Last Admin: 10/29/19 10:48 Dose: 500 mg Diphenhydramine HCl (Benadryl) 50 mg PO ONETIME ONE Stop: 10/28/19 11:54 Last Admin: 10/28/19 12:25 Dose: 50 mg Diphenhydramine HCl (Benadryl) 25 mg IVPUSH ONETIME ONE Stop: 10/28/19 16:36 Last Admin: 10/28/19 16:49 Dose: 25 mg Fluticasone Propionate (Flonase) 0 gm NASBOTH DAILY [facility] Last Admin: 10/29/19 10:34 Dose: Not Given Sodium Chloride (Normal Saline) 1,000 mls @ 999 mls/hr IV .BOLUS ONE Stop: 10/28/19 11:52 Last Admin: 10/28/19 11:12 Dose: 999 mls/hr Ceftriaxone Sodium/Dextrose 1 (gm/ Premix) 50 mls @ 100 mls/hr IV ONETIME ONE Stop: 10/28/19 12:14 Last Admin: 10/28/19 12:25 Dose: 100 mls/hr Sodium Chloride (Normal Saline) 1,000 mls @ 125 mls/hr IV ASDIRECTED [facility] Last Admin: 10/29/19 06:33 Dose: 125 mls/hr Ceftriaxone Sodium/Dextrose 1 (gm/ Premix) 50 mls @ 100 mls/hr IV Q24H [facility] Last Admin: 10/29/19 10:36 Dose: 100 mls/hr Labetalol HCl (Normodyne) 10 mg IVPUSH Q4H PRN; Protocol PRN Reason: Hypertension Methylprednisolone Sodium Succinate (Solu-Medrol) 40 mg IVPUSH DAILY [facility] Last Admin: 10/29/19 10:33 Dose: 40 mg Budesonide/Formoterol 160-4.5 Mcg/Puff 6 Gm Inhaler 1 each INH DAILY [facility] Last Admin: 10/29/19 10:34 Dose: 1 each Prednisone (Prednisone) 40 mg PO ONETIME ONE Stop: 10/28/19 10:52 Last Admin: 10/28/19 11:12 Dose: 40 mg <Mary Alice Hendricks - Last Filed: 11/06/19 15:11> Discharge Summary - Hospital Course Free Text/Narrative:: Patient was seen and examined by me along with the resident. Agree with the above outlined management plan. . - Referral to Home Health Primary Care Physician: PCP None - Discharge Diagnosis/Problem(s) (1) Asthma exacerbation SNOMED Code(s): 435351101 ICD Code: J45.901 - UNSPECIFIED ASTHMA WITH (ACUTE) EXACERBATION Status: Acute (2) Leukocytosis SNOMED Code(s): 453272330, 592949211 ICD Code: D72.829 - ELEVATED WHITE BLOOD CELL COUNT, UNSPECIFIED Status: Acute - Patient Data Vitals - Most Recent: Last Vital Signs Temp 36.5 C 10/29/19 08:00 Pulse 86 10/29/19 08:00 Resp 18 10/29/19 08:00 BP 140/74 10/29/19 08:00 Pulse Ox 97 10/29/19 08:00 Med Orders - Current: Current Medications Discontinued Medications Acetaminophen (Tylenol Extra Strength) 1,000 mg PO ONETIME ONE Stop: 10/28/19 10:52 Last Admin: 10/28/19 11:12 Dose: 1,000 mg Albuterol (Ventolin Hfa) 0 gm INH ONETIME ONE Stop: 10/28/19 10:54 Last Admin: 10/28/19 11:13 Dose: 2 inhalation Albuterol (Ventolin Hfa) 0 gm INH Q4H PRN PRN Reason: Wheezing Albuterol/Ipratropium (Duoneb 3.0-0.5 Mg/3 Ml) 3 ml NEB Q4HRRT PRN PRN Reason: Shortness of Breath Azithromycin (Zithromax) 500 mg PO Q24H [facility] Last Admin: 10/29/19 10:48 Dose: 500 mg Diphenhydramine HCl (Benadryl) 50 mg PO ONETIME ONE Stop: 10/28/19 11:54 Last Admin: 10/28/19 12:25 Dose: 50 mg Diphenhydramine HCl (Benadryl) 25 mg IVPUSH ONETIME ONE Stop: 10/28/19 16:36 Last Admin: 10/28/19 16:49 Dose: 25 mg Fluticasone Propionate (Flonase) 0 gm NASBOTH DAILY [facility] Last Admin: 10/29/19 10:34 Dose: Not Given Sodium Chloride (Normal Saline) 1,000 mls @ 999 mls/hr IV .BOLUS ONE Stop: 10/28/19 11:52 Last Admin: 10/28/19 11:12 Dose: 999 mls/hr Ceftriaxone Sodium/Dextrose 1 (gm/ Premix) 50 mls @ 100 mls/hr IV ONETIME ONE Stop: 10/28/19 12:14 Last Admin: 10/28/19 12:25 Dose: 100 mls/hr Sodium Chloride (Normal Saline) 1,000 mls @ 125 mls/hr IV ASDIRECTED [facility] Last Admin: 10/29/19 06:33 Dose: 125 mls/hr Ceftriaxone Sodium/Dextrose 1 (gm/ Premix) 50 mls @ 100 mls/hr IV Q24H [facility] Last Admin: 10/29/19 10:36 Dose: 100 mls/hr Labetalol HCl (Normodyne) 10 mg IVPUSH Q4H PRN; Protocol PRN Reason: Hypertension Methylprednisolone Sodium Succinate (Solu-Medrol) 40 mg IVPUSH DAILY [facility] Last Admin: 10/29/19 10:33 Dose: 40 mg Budesonide/Formoterol 160-4.5 Mcg/Puff 6 Gm Inhaler 1 each INH DAILY [facility] Last Admin: 10/29/19 10:34 Dose: 1 each Prednisone (Prednisone) 40 mg PO ONETIME ONE Stop: 10/28/19 10:52 Last Admin: 10/28/19 11:12 Dose: 40 mg
== END 2019-10-29 11:58 | disposition left against medical advice (07) ==
LOC: MW.ED 10:03 → MW.MS 12:17
PROVIDERS: ADMIT Student in an Organized Health Care Education/Training Program; ATTEND Student in an Organized Health Care Education/Training Program
DX: J45.901 Unspecified asthma with (acute) exacerbation (principal); L50.9 Urticaria, unspecified; D72.829 Elevated white blood cell count, unspecified; R53.1 Weakness; I10 Essential (primary) hypertension; E66.9 Obesity, unspecified; F17.210 Nicotine dependence, cigarettes, uncomplicated; Z79.51 Long term (current) use of inhaled steroids; Z68.38 Body mass index [BMI] 38.0-38.9, adult; Z79.899 Other long term (current) drug therapy; Z20.828 Contact with and (suspected) exposure to other viral communicable diseases
CPT/HCPCS: 36415; 71045; 80048; 80053; 82728; 83605; 83735; 84100; 85025; 87040; 87635; 87804; 94640; 96361; 96365; 96375; 96376; 99285; A9270; G0378; J0696; J1200; J2920; J7030; 99283; U0001; U0002